=== PATIENT | female | born 2000 | race African-American/Black ===

== ENCOUNTER 2023-05-20 08:44 | Emergency (ER) | payer MEDICAID ==
[~2023-05-20] VITALS: Ht 147.3 cm; Wt 90.0 kg
[2023-05-20 08:49] VITALS: O2SAT 100
[2023-05-20 11:16] LABS: BASOPHILS % 0.2 % (0.0-2.0); EOSINOPHILS % 0.2 % (0.0-5.0); HEMOGLOBIN. 12.3 g/dL (12.0-16.0); LYMPHOCYTES % 9.4 % (20.0-50.0); MEAN CORPUSCULAR HEMOGLOBIN 29.5 pg (28.0-32.0); MEAN CORPUSCULAR HGB CONC 34.2 g/dL (31.0-37.0); MEAN CORPUSCULAR VOLUME 86.5 fL (81.0-99.0); MEAN PLATELET VOLUME 8.6 fl (7.4-10.4); MONOCYTES % 10.5 % (2.0-8.0); NEUTROPHILS % 79.7 % (40.0-76.0); PLATELET 300 x1000/uL (130-400); RED BLOOD CELL COUNT 4.16 mill/uL (4.2-5.4); RED CELL DISTRIBUTION WIDTH 13.3 % (11.6-14.6); WHITE BLOOD COUNT 13.4 x1000/uL (4.5-11.0)
[2023-05-20 11:29] LABS: CHLORIDE 105 mEq/L (98-107); INDEX HEMOLYSI 1 (1-3); INDEX ICTERIC 1 (1-4); INDEX LIPEMIC 1 (1-3); POTASSIUM 3.5 mEq/L (3.5-5.1); SODIUM 133 mEq/L (136-145)
[2023-05-20 11:45] LABS: ACETAMINOPHEN <2 ug/mL ug/mL (10-30); ALANINE AMINOTRANSFERASE 25 IU/L (13-61); ALBUMIN 3.7 g/dL (3.4-5.0); ASPARTATE AMINOTRANSFERASE 14 IU/L (15-37); BILIRUBIN TOTAL 1.2 mg/dL (0.1-1.0); CALCIUM 8.9 mg/dL (8.5-10.1); CARBON DIOXIDE 24 mEq/L (21-32); CREATININE 0.6 mg/dL (0.6-1.3); ETHANOL BLOOD < 10 mg/dL (-10); GLUCOSE 75 mg/dL (70-105); THYROID STIMULATING HORMONE 0.16 uIU/mL (0.36-3.74); UREA NITROGEN BLOOD 13 mg/dL (7-21)
[2023-05-20 11:51] LABS: HCG SCREEN NEGATIVE
[2023-05-20 13:03] LABS: CLARITY URINE CLOUDY (CLEAR); COLOR URINE YELLOW (YELLOW); GLUCOSE URINE NEGATIVE (NEGATIVE); KETONES URINE 3+ (NEGATIVE); LEUKOCYTE ESTERASE URINE TRACE (NEGATIVE); NITRITE URINE NEGATIVE (NEGATIVE); OCCULT BLOOD URINE NEGATIVE (NEGATIVE); PH URINE 5.5 (4.5-8.0); PROTEIN URINE TRACE (NEGATIVE); SPECIFIC GRAVITY URINE 1.024 (1.005-1.030)
[2023-05-20 13:20] LABS: MUCUS URINE 2+ /lpf (< = 2+)
[2023-05-20 13:21] LABS: SQUAMOUS EPITHELIAL CELL URINE 1+ /lpf (RARE/1+)
[2023-05-20 13:23] LABS: CALCIUM OXALATE CRYSTALS URINE 1+ /lpf
[2023-05-20 13:24] LABS: BACTERIA URINE 1+
[2023-05-20 13:25] LABS: RBC URINE NONE SEEN /hpf (0-2)
[2023-05-20 13:31] LABS: *BARBITURATES SCREEN URINE NEGATIVE (NEGATIVE); *BENZODIAZEPINES SCREEN URINE NEGATIVE (NEGATIVE); *COCAINE SCREEN URINE NEGATIVE (NEGATIVE); METHADONE URINE SCREEN NEGATIVE (NEGATIVE); OPIATES URINE SCREEN NEGATIVE (NEGATIVE); PHENCYCLIDINE URINE SCREEN NEGATIVE (NEGATIVE)
[2023-05-20 14:40] LABS: *AMPHETAMINES SCREEN URINE PRESUMTIVE POSITIVE (NEGATIVE); CANNABINOID URINE SCREEN PRESUMTIVE POSITIVE (NEGATIVE); ECSTASY MDMA SCREEN URINE CONF.TEST INDICATED (NEGATIVE)
[2023-05-20] MEDS ORDERED: NITROFURANTOIN 100MG M/M CAPSULE PO SCH (21:00)
[2023-05-21] MEDS: NITROFURANTOIN 100MG M/M CAPSULE PO SCH ×2 (02:45→14:30)
[2023-05-21] MEDS: OLANZAPINE 5MG TABLET ODT PO SCH ×2 (09:00→17:00)
[2023-05-22] MEDS: NITROFURANTOIN 100MG M/M CAPSULE PO SCH ×2 (02:30→14:30)
[2023-05-22] MEDS: OLANZAPINE 5MG TABLET ODT PO SCH (09:56)
[2023-05-22 15:07] VITALS: BP 102/73; PULSE 66; RESP 16; TEMP 98
== END 2023-05-22 15:43 | disposition short-term general hospital (02) ==
LOC: ER 09:04
DX: F29 Unspecified psychosis not due to a substance or known physiological condition (principal); J45.909 Unspecified asthma, uncomplicated; Z20.822 Contact with and (suspected) exposure to COVID-19
CPT/HCPCS: 80053; 80305; 81003; 81025; 80307; 80329; 80320; 84703; 84443; 85025; 36415; 99285; 87426; C9803; G0480

== ENCOUNTER 2024-01-26 11:13 | Emergency (ER) | payer OTHER ==
[~2024-01-26] VITALS: Ht 149.9 cm; Wt 32.0 kg
[2024-01-26 11:15] VITALS: BP 110/60; PULSE 66; RESP 18; O2SAT 98
[2024-01-26] MEDS ORDERED: ACETAMINOPHEN 325MG TABLET PO NR (11:41)
[2024-01-26] MEDS ORDERED: MAGNESIUM/ALUMINUM HYDROXIDE/SIMETHICONE 30ML UDC PO STA (18:22)
[2024-01-26] MEDS ORDERED: ONDANSETRON 4MG ODT PO STA (18:22)
[2024-01-26] MEDS ORDERED: DICYCLOMINE 10 MG/5 ML ORAL SYR PO STA (18:22)
[2024-01-26] MEDS: DICYCLOMINE HCL 10MG CAPSULE PO NR (18:22)
[2024-01-26] MEDS: ACETAMINOPHEN 325MG TABLET PO NR (19:15)
[2024-01-26] MEDS: MAGNESIUM/ALUMINUM HYDROXIDE/SIMETHICONE 30ML UDC PO NR (19:15)
[2024-01-26] MEDS: ONDANSETRON 4MG ODT PO NR (19:15)
[2024-01-26 19:51] LABS: CHLORIDE 108 mEq/L (98-107); POTASSIUM 3.7 mEq/L (3.5-5.1); SODIUM 137 mEq/L (136-145)
[2024-01-26 19:52] LABS: CALCIUM 10.2 mg/dL (8.7-10.4); CARBON DIOXIDE 24 mEq/L (21-32)
[2024-01-26 19:57] LABS: CREATININE 0.7 mg/dL (0.6-1.0); GLUCOSE 78 mg/dL (70-105); UREA NITROGEN BLOOD 10 mg/dL (9-23)
[2024-01-26 19:59] LABS: ALANINE AMINOTRANSFERASE 26 IU/L (10-49); ALBUMIN 4.7 g/dL (3.2-4.8); ASPARTATE AMINOTRANSFERASE 27 IU/L (<34); BASOPHILS % 0.3 % (0.0-2.0); BILIRUBIN TOTAL 0.7 mg/dL (0.1-1.0); EOSINOPHILS % 1.3 % (0.0-5.0); HEMATOCRIT. 40.4 % (36.0-48.0); HEMOGLOBIN. 13.9 g/dL (12.0-16.0); MEAN CORPUSCULAR HEMOGLOBIN 29.9 pg (28.0-32.0); MEAN CORPUSCULAR HGB CONC 34.4 g/dL (31.0-37.0); MEAN CORPUSCULAR VOLUME 86.9 fL (81.0-99.0); MEAN PLATELET VOLUME 8.8 fl (7.4-10.4); MONOCYTES % 8.7 % (2.0-8.0); NEUTROPHILS % 65.7 % (40.0-76.0); PLATELET 344 x1000/uL (130-400); PROTEIN TOTAL 8.2 g/dL (6.0-8.3); RED BLOOD CELL COUNT 4.65 mill/uL (4.2-5.4); WHITE BLOOD COUNT 8.8 x1000/uL (4.5-11.0)
[2024-01-26 20:01] LABS: HCG SCREEN NEGATIVE
[2024-01-26] MEDS ORDERED: TOPUD PO (20:02)
== END 2024-01-26 22:23 | disposition home or self-care (01) ==
LOC: ER 11:20
DX: R10.9 Unspecified abdominal pain (principal); J45.909 Unspecified asthma, uncomplicated
CPT/HCPCS: 99284; 80053; 84703; 83690; 85025; 36415; Q0162